=== PATIENT | female | born 1950 | race Caucasian/White ===

== ENCOUNTER 2016-04-28 11:20 | Day surgery (SDC) | payer OTHER ==
[~2016-04-28] VITALS: Ht 157.5 cm; Wt 65.9 kg
[~2016-04-28 11:20] MED LIST: ASPIRIN PO; ATORVASTATIN PO; LEVOTHYROXINE PO; LORATADINE PO
[2016-04-28 12:08] VITALS: Ht 157.5 cm; Wt 65.9 kg
[2016-04-28 12:22] VITALS: BP 109/59; PULSE 61; RESP 13
[2016-04-28] MEDS ORDERED: PROPOFOL 40 ML ONE (14:35)
[2016-04-28 15:49] VITALS: BP 132/64; PULSE 66; RESP 16
--- NOTE | 2016-04-28 18:12 | GILP ---
DATE OF PROCEDURE: 04/28/2016 NAME OF PROCEDURE: Colonoscopy with polyp ablation. SURGEON: Hue Miramontes MD. HISTORY AND INDICATIONS: The patient with a sessile polyp in the proximal ascending colon which was turned out to be hyperplastic in nature. The ____ was then taken to evaluate completeness of resec tion. PREMEDICATION: Monitored anesthesia care by anesthesiologist. INSTRUMENT USED: Olympus colonoscope. PREPARATION: Adequate. TECHNIQUE: After informed consent, with the patient/relatives understanding the procedure, its indic ations potential risks and complications, including but not limited to: allergic reaction, bleeding, perforation, infection, missed lesions and after all pertinent questions were answered to the patie nt's satisfaction, the patient/relatives signed the witnessed informed consent. 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 Once the sedativ e effect was achieved, the patient was placed in the left lateral decubitus position, digital rectal examination was performed. The colonoscope was then introduced and advanced under visual control th roughout all segments of the colon including: the rectum, sigmoid, descending colon, splenic flexure , transverse colon, hepatic flexure, ascending colon and finally reaching the cecum which was clearl y identified by transillumination, finger indentation and the ileocecal valve. Careful examination o f the mucosa of the lower gastrointestinal tract both on insertion as well as withdrawal of the inst rument disclosed the following findings: Rectal Examination: No evidence of perirectal disease, no masses. Colonic Mucosa: The colonic mucosa is unremarkable. We reached the ascending colon. The area of p revious localization of the tumor was identified. There is a 5 mm residual polypoid-looking area wh ich was completely ablated with biopsy forceps. The ileocecal valve was clearly identified, as well as the appendiceal orifice, both of which being unremarkable. The instrument was withdrawn. Withd natasha of the instrument disclosed no further abnormalities. No further enlargement of the descripti on of moderate-sized internal hemorrhoids. IMPRESSION: 1. There is an area of localization tattoo in the proximal ascending colon with 5 mm residual polyp , ablated. 2. Moderate sized internal hemorrhoids. PLAN: Pathology will be reviewed as soon as available. Annual Hemoccult stool testing is recommend ed and colonoscopy in 3 years is recommended pending review of pathology. Dictated By: HUE MIRAMONTES MS/NTS Conf#: [id number] DID#: [id number] CC: HUE MIRAMONTES;*EndCC*
== END 2016-04-28 16:43 | disposition home or self-care (01) ==
LOC: GIL 11:20
PROVIDERS: ATTEND Internal Medicine Gastroenterology
DX: K63.5 Polyp of colon (principal); K64.8 Other hemorrhoids; E66.9 Obesity, unspecified; Z68.26 Body mass index [BMI] 26.0-26.9, adult
CPT/HCPCS: 45380; Z7610; 88305